=== PATIENT | male | born 1980 | race African-American/Black ===

== ENCOUNTER 2021-01-29 12:21 | Emergency (ER) | payer OTHER ==
[~2021-01-29] VITALS: Ht 180.3 cm; Wt 97.5 kg
[2021-01-29] MEDS ORDERED: SODIUM CHLORIDE 0.9% 1000ML 1,000 ML IV STA (13:11)
[2021-01-29] MEDS ORDERED: SODIUM CHLORIDE 0.9% 1000ML 1,000 ML ONE (13:33)
[2021-01-29] MEDS ORDERED: ACETAMINOPHEN 325 MG TAB ONE (13:45)
[2021-01-29] MEDS ORDERED: ACETAMINOPHEN 325 MG TAB PO ONE (13:45)
[2021-01-29] MEDS ORDERED: LISINOPRIL10 MG PO (14:16)
[2021-01-29] MEDS ORDERED: HYDROCHLOROTH12.5 MG PO (14:16)
[2021-01-29 14:50] VITALS: BP 131/92
== END 2021-01-29 14:52 | disposition home or self-care (01) ==
LOC: FSED 13:09
DX: R51.9 Headache, unspecified (principal); I16.0 Hypertensive urgency; I10 Essential (primary) hypertension
CPT/HCPCS: 80053; 85025; 99283; J7030